=== PATIENT | female | born 1940 | race Caucasian/White ===

== ENCOUNTER → 2017-09-28 | Outpatient (CLI) | payer MEDICARE, OTHER ==
[~2017-09-28] MED LIST: AC325T PO; ASCO500C14 PO; CALC-656 PO; CYAN10007 PO; DICL100G20 TP; DICL100T PO; ETD300C PO; FEXO1TAB43 PO; FEXO60CA19 PO; FLC150T PO; FOLI1TAB24 PO; GBPN100C PO; HYDR15SO8 PO; LEVO200T PO; LIDO15SO2 PO; LVT.15T PO; MECL25TA56 PO; MTP25TSR PO; MULT-608 PO; OMG1KC PO; PNT40TEC PO; POLY17PO23 GT; PRED10TA22 PO; SCP1.5TD TOP; SCR1T1 PO; SUCR1TAB36 PO; TETRACAINESUCKERS MT; VITA-189 PO; ZOLP10TA5 PO; [UNRECOGNIZED DRUG - OTHER] PO
--- NOTE | 2017-09-28 16:51 | Diagnostic Imaging Report ---
Ultrasound of the soft tissue, head and neck. Indication: Pharyngeal dysphagia, history of thyroid carcinoma. The previous ultrasound soft tissue neck exam of 09/02/2015 failed to show any discrete solid or cystic mass. There was no abnormality of the epiglottis nor is any sign of retropharyngeal edema. On this study there is again no evidence for mass or cystic lesion. The thyroid gland was visualized. The thyroid gland is small with the right lobe measuring 2.7 x 0.6 x 0.7, the left lobe is estimated to be 3.5 x 0.6 x 1.0 cm (normal gland size 4-5 by 2 x 2 cm or less). The thyroid gland has somewhat of a heterogeneous texture but there is no focal mass or cyst arising from the gland. The thyroid gland does seem similar in appearance to the prior study. Impression: 1. There is no mass or cyst and there is no sign of an acute abnormality. 2. The thyroid gland is small but similar in appearance to the previous study. 3. If clinical concern regarding an underlying abnormality persists and further imaging is desired, then CT would be recommended. Dictated by: Dictated on workstation # [id number]
== END ==
LOC: RAD 12:07
PROVIDERS: ATTEND Nurse Practitioner Family
DX: R13.13 Dysphagia, pharyngeal phase (principal); E03.8 Other specified hypothyroidism; Z85.850 Personal history of malignant neoplasm of thyroid
CPT/HCPCS: 76536

== ENCOUNTER → 2017-10-11 | Outpatient (CLI) | payer MEDICARE, OTHER ==
[~2017-10-11] MED LIST changes: +IOHEXOL 350 MG/ML 100 ML (OMNIPAQUE 350) VIAL IV ONE; +NS 250 ML (IVPB) BAG IV ONE
[2017-10-11 07:45] LABS: BUN/CREATININE RATIO 15; CREATININE SERUM 0.73 MG/DL (0.60-1.30); GFR ESTIMATED > 60
--- NOTE | 2017-10-11 09:38 | Diagnostic Imaging Report ---
PROCEDURE: CT neck soft tissue with contrast. TECHNIQUE: Multiple contiguous axial images were obtained through the neck after the administration of contrast. INDICATION: Difficulty swallowing. The visualized intracranial structures are unremarkable. The posterior nasopharynx, oropharynx and larynx appear unremarkable. Parapharyngeal fat planes are preserved. Submandibular and parotid glands appear to be symmetric bilaterally. There is some moderate artifact present from dental hardware. Thyroid gland appears to be very small. No definite cervical lymphadenopathy is detected. No fluid collections are seen. IMPRESSION: Unremarkable CT of the neck. Dictated by: Dictated on workstation # [id number]
== END ==
LOC: RAD 07:12
PROVIDERS: ATTEND Nurse Practitioner Family
DX: R22.1 Localized swelling, mass and lump, neck (principal)
CPT/HCPCS: 36415; 70491; 82565; 84520

== ENCOUNTER 2018-03-10 13:57 | Emergency (ER) | payer MEDICARE, OTHER ==
[~2018-03-10] VITALS: Ht 162.6 cm; Wt 86.2 kg
[~2018-03-10 13:57] MED LIST changes: -IOHEXOL 350 MG/ML 100 ML (OMNIPAQUE 350) VIAL IV ONE; -NS 250 ML (IVPB) BAG IV ONE
--- OUTSIDE RECORDS SUMMARY | 2018-03-10 14:01 | XMS REPORT | Clinical Summary ---
Author Author [facility] Organization [facility] Address Unknown Phone Unavailable Care Team Providers Care Hand Tool Lapper Name Role Phone Gardy Crabtree MD Unavailable Unavailable Joseph Mazariegos MD Unavailable Carlos English PCP Brock Najera MD Unavailable Source Comments Some departments are not documenting in the electronic medical record. If you do not see the information that you expected, contact Release of Information in the Health Information Management department at [phone] for further assistance in locating additional records.[facility] Allergies Active Allergy Reactions Severity Noted Date Comments Sulfa (Sulfonamide SEE COMMENTS 06/23/2011 Pt was told it happened Antibiotics) when she was a child Current Medications Prescription Sig. Disp. Refills Start End Date Status Date cyanocobalamin (VITAMIN Take 1,000 mcg by mouth Active B-12) 1,000 mcg tablet daily. fish oil /omega-3 fatty Take 2 Caps by mouth Active acids (SEA-OMEGA) three times daily. 340/1000 mg capsule MULTIVITAMIN PO Take 1 Tab by mouth Active daily. Complete Multivitamin-Women's 50+ levothyroxine (SYNTHROID) Take 200 mcg by mouth Active 200 mcg tablet daily. metoprolol XL (TOPROL XL) Take 25 mg by mouth Active 25 mg tablet daily. CALCIUM CITRATE (CITRACAL Take 2 Caps by mouth Active PO) daily. ciprofloxacin (CIPRO) 250 Take 1 Tab by mouth twice 6 Tab 0 08/16/19 Active mg tablet daily. 14 solifenacin(+) (VESICARE) Take 5 mg by mouth daily. Active 5 mg tablet azaTHIOprine (IMURAN) 50 Take 2 Tabs by mouth 60 Tab 2 09/18/20 Active mg tablet daily. 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 Raynaud's disease /phenomenon 06/23/2011 Stomatitis 06/23/2011 Sicca (HCC) 06/23/2011 Resolved Problems Problem Noted Date Resolved Date Positive ZEESHAN (antinuclear antibody) 01/17/2013 11/14/2013 Undifferentiated connective tissue disease (HCC) 06/23/2011 11/14/2013 Family History Medical History Relation Name Comments Cancer Father Arthritis Mother Heart Disease Mother Stroke Mother Relation Name Status Comments Daughter Alive Father Mother Son Alive Son Alive Social History Tobacco Use Types Packs/Day Years Used Date Former Smoker Cigarettes 1 30 Quit: 04/30/2010 Smokeless Tobacco: Never Used Alcohol Use Drinks/Week oz/Week Comments Yes 0 Standard 0.0 occassionally drinks or equivalent Sex Assigned at Date Recorded Not on file Last Filed Vital Signs Vital Sign Reading Time Taken Blood Pressure 133/90 01/09/2015 1:33 PM CDT Pulse 91 01/09/2015 1:33 PM CDT Temperature 36.3 C (97.4 F) 01/09/2015 1:33 PM CDT Respiratory Rate 16 01/09/2015 1:33 PM CDT Oxygen Saturation 95% 01/09/2015 1:33 PM CDT Inhaled Oxygen - - Concentration Weight 91.4 kg (201 lb 9.6 oz) 01/09/2015 1:33 PM CDT Height 163.8 cm (5' 4.49") 01/09/2015 1:33 PM CDT Body Mass Index 34.08 01/09/2015 1:33 PM CDT Plan of Treatment Health Maintenance Due Date Last Done Comments PHYSICAL (COMPREHENSIVE) 1947 EXAM DTAP/TDAP VACCINES (1 - 01/23/1960 Tdap) SHINGLES RECOMBINANT 01/23/1992 VACCINE (1 of 2) PNEUMONIA (PCV13/PPSV23) 2007 VACCINES (1 of 2 - PCV13) INFLUENZA VACCINE 11/22/2017 OSTEOPOROSIS Completed 11/19/2013 SCREENING/MONITORING Results Not on filefrom Last 3 Months
--- OUTSIDE RECORDS SUMMARY | 2018-03-10 14:01 | XMS REPORT ---
Author Author HAL SOLIS [facility] Address [address] [place] [address] Care Team Providers Care Inpatient Care Manager Rn Name Role Phone HAL SOLIS Unavailable PROBLEMS Type Condition ICD9-CM Code TCI89-LC Code Onset Dates Condition Status SNOMED Code Problem Need for prophylactic vaccination and inoculation, Influenza V04.81 Active [id number] ALLERGIES No Information ENCOUNTERS Encounter Location Date Diagnosis [facility] [id number] [place] [phone] Jan, Encounter for immunization Z23 [facility] [id number] [place] [phone] Jan, Encounter for immunization Z23 [facility] [id number] [place] [phone] Feb, [facility] [id number] [place] [phone] Feb, [facility] [id number] [place] [phone] Jan, [facility] [id number] [place] [phone] Jan, IMMUNIZATIONS Vaccine Route Administration Date Status FLUARIX QUAD (3 AND UP) 2017 IM Intramuscular Jan 31, 2017 Administered SOCIAL HISTORY Never Assessed REASON FOR VISIT Flu shot PLAN OF CARE VITAL SIGNS MEDICATIONS Unknown Medications RESULTS No Results PROCEDURES Procedure Date Ordered Result Body Site FLUARIX QUAD (3 & UP)-GSK-2015 Jan 31, 2017 SINGLE IMMUNIZATION ADMIN Jan 31, 2017 INSTRUCTIONS MEDICATIONS ADMINISTERED No Known Medications
--- OUTSIDE RECORDS SUMMARY | 2018-03-10 14:01 | XMS REPORT ---
Author Author HAL SOLIS [facility] Address [address] [place] [address] Care Team Providers Care Hospice Music Therapist Name Role Phone HAL SOLIS Unavailable PROBLEMS Type Condition ICD9-CM Code EMA40-XT Code Onset Dates Condition Status SNOMED Code Problem Need for prophylactic vaccination and inoculation, Influenza V04.81 Active [id number] ALLERGIES No Information ENCOUNTERS Encounter Location Date Diagnosis [facility] [id number] [place] [phone] Jan, Encounter for immunization 23 [facility] [address] [phone] Jan, Encounter for immunization 23 [facility] [id number] [place] [phone] Jan, Encounter for immunization [address] [phone] Feb, [facility] [id number] [place] [phone] Feb, [facility] [id number] [place] [phone] Jan, [facility] [id number] [place] [phone] Jan, IMMUNIZATIONS Vaccine Route Administration Date Status FLULAVAL QUAD 0.5ML (6 MO & UP) 2017 IM Intramuscular Jan 29, 2018 Administered SOCIAL HISTORY Never Assessed REASON FOR VISIT Flu Shot- Wolfgang Bautista RN PLAN OF CARE VITAL SIGNS MEDICATIONS Unknown Medications RESULTS No Results PROCEDURES Procedure Date Ordered Result Body Site FLULAVAL QUAD 0.5ML (6 MO & UP) 2018 Jan 29, 2018 ADMN FLU VAC NO FEE SCHED SAME DAY Jan 29, 2018 SINGLE IMMUNIZATION ADMIN Jan 29, 2018 INSTRUCTIONS MEDICATIONS ADMINISTERED No Known Medications
--- OUTSIDE RECORDS SUMMARY | 2018-03-10 14:01 | XMS REPORT ---
Author HAL Soto Organization [employer] Address Unknown Phone Unavailable Care Team Providers Care Protocol Manager Name Role Phone HAL SOLIS CP Unavailable Allergies No Known Allergies Problems Problem Type Condition Code Onset Dates Condition Status Assessment Encounter for immunization Z23 Active Problem Need for prophylactic vaccination and inoculation, Influenza V04.81 Active Medications No Known Medications Procedures Procedure Coding System Code Date SINGLE IMMUNIZATION ADMIN CPT-4 80206 Feb 20, 2016 PPV23 (PNEUMOVAX) CPT-4 85240 Feb 20, 2016 Results No Known Results Immunizations Vaccine Administration Date PPV23 (PNEUMOVAX) Feb 20, 2016 FLUARIX QUAD P-FREE 3 AND UP .50 2015Feb 20, 2016 Summary Purpose [employer] Submission
--- OUTSIDE RECORDS SUMMARY | 2018-03-10 14:03 | XMS REPORT | Continuity of Care Document ---
Author Author [facility] Address Unknown Phone Unavailable Allergies Active Description Code Type Severity Reaction Onset Reported/Identified Relationship to Patient Clinical Status Yes Sulfa (Sulfonamide Antibiotics) [id number] Drug Allergy Unknown N/A 2015 Medications There is no data. 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 11/09/2011 Ot 455.8 HEMRRHOID NOS W COMP NEC 11/09/2011 Ot 564.00 UNSPEC CONSTIPATION 11/09/2011 Ot 716.90 ARTHROPATHY NOS-UNSPEC 11/09/2011 Ot 780.4 DIZZINESS AND GIDDINESS 11/09/2011 Ot 780.79 OTH MALAISE FATIGUE 11/09/2011 Ot 782.0 SKIN SENSATION DISTURB 11/09/2011 Ot 784.0 HEADACHE 11/09/2011 Ot 784.92 JAW PAIN 11/09/2011 Ot 787.02 NAUSEA ALONE 11/09/2011 Ot 965.1 POISONING- SALICYLATES 11/09/2011 Ot E850.3 ACC POISON- SALICYLATES 11/09/2011 Ot V13.02 PERSONAL HISTORY, URINARY (TRACT) INFECT 11/09/2011 Ot V15.82 HISTORY OF TOBACCO USE 11/18/2011 Ot 112.0 THRUSH 11/18/2011 Ot 244.9 HYPOTHYROIDISM NOS 11/18/2011 Ot 272.0 PURE HYPERCHOLESTEROLEM 11/18/2011 Ot 279.49 AUTOIMMUNE DISEASE, NOT ELSEWHERE CLASSI 11/18/2011 Ot 350.1 TRIGEMINAL NEURALGIA 11/18/2011 Ot 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 11/18/2011 Ot 455.6 HEMORRHOIDS NOS 11/18/2011 Ot 692.9 DERMATITIS NOS 11/18/2011 Ot 716.90 ARTHROPATHY NOS-UNSPEC 11/18/2011 Ot V15.82 HISTORY OF TOBACCO USE 11/18/2011 Ot V57.1 PHYSICAL THERAPY NEC 11/18/2011 Ot V57.21 ENCOUNTER FOR OCCUPATIONAL THERAPY 10/01/2012 MANINDER BARRON, LIO Duffy Ot 386.11 BENIGN PARXYSMAL VERTIGO 10/01/2012 LIO DICKENS MD Ot 780.4 DIZZINESS AND GIDDINESS 02/12/2013 SOLIS DO, HAL K V04.81 FLU SHOT 10/04/2014 APRYL BARRON, JIM Diego Ot 244.9 HYPOTHYROIDISM NOS 10/04/2014 APRYL BARRON, JIM Diego Ot 528.2 ORAL APHTHAE 10/04/2014 APRYL BARRON, JIM Diego Ot 710.0 SYST LUPUS ERYTHEMATOSIS 10/04/2014 APRYL BARRON, JIM Diego Ot V58.69 OTH MED,LT,CURRENT USE 10/07/2014 SUSU BARRON, ROSINA R Ot 722.10 10/07/2014 SUSU BARRON, ROSINA R Ot 722.52 10/27/2014 SUSU BARRON, ROSINA R Ot 722.10 10/27/2014 SUSU ABRRON, ROSINA R Ot 722.52 11/13/2014 Ot 496 11/13/2014 Ot 716.90 11/13/2014 Ot 782.1 11/13/2014 Ot 791.9 11/13/2014 Ot V72.84 11/13/2014 Ot 782.3 11/13/2014 Ot 959.7 11/13/2014 Ot E000.8 11/13/2014 Ot E849.0 11/13/2014 Ot E928.9 11/13/2014 SUSU BARRON, ROSINA R Ot 244.9 11/13/2014 SUSU BARRON, ROSINA R Ot 794.5 11/13/2014 SUSU BARRON, ROSINA R Ot V16.8 11/13/2014 HAKEEM BARRON, KAISER Renee Ot 447.6 11/13/2014 HAKEEM BARRON, KAISER Renee Ot 447.8 11/13/2014 HAKEEM BARRON, KAISER Renee Ot 786.09 11/13/2014 SUSU BARRON, ROSINA R Ot 722.10 11/13/2014 SUSU BARRON, ROSINA R Ot 722.52 11/14/2014 SUSU BARRON, ROSINA R Ot 722.10 11/14/2014 SUSU BARRON, ROSINA R Ot 722.52 12/05/2014 HAKEEM BARRON, KAISER Renee Ot 785.2 01/01/2015 KAISER PALACIO MD Ot 785.2 08/31/2015 IMER VANG MD Ot J39.2 OTHER DISEASES OF PHARYNX 08/31/2015 IMER VANG MD Ot Z01.810 ENCOUNTER FOR PREPROCEDURAL CARDIOVASCUL 08/31/2015 IMER VANG MD Ot Z01.811 ENCOUNTER FOR PREPROCEDURAL RESPIRATORY 08/31/2015 IMER VANG MD Ot Z01.812 ENCOUNTER FOR PREPROCEDURAL LABORATORY E 08/31/2015 IMER VANG MD Ot Z11.2 ENCOUNTER FOR SCREENING FOR OTHER BACTER 09/04/2015 IMER VANG MD Ot B37.0 CANDIDAL STOMATITIS 09/04/2015 IMER VANG MD Ot E03.9 HYPOTHYROIDISM, UNSPECIFIED 09/04/2015 IMER VANG MD Ot I10 ESSENTIAL (PRIMARY) HYPERTENSION 09/04/2015 IMER VANG MD Ot J35.8 OTHER CHRONIC DISEASES OF TONSILS AND AD 09/04/2015 IMER VANG MD Ot M35.9 SYSTEMIC INVOLVEMENT OF CONNECTIVE TISSU 09/12/2015 ROSINA CRISTOBAL MD Ot D89.9 DISORDER INVOLVING THE IMMUNE MECHANISM, 09/12/2015 ROSINA CRISTOBAL MD Ot E03.9 HYPOTHYROIDISM, UNSPECIFIED 09/12/2015 ROSINA CRISTOBAL MD Ot E78.0 PURE HYPERCHOLESTEROLEMIA 09/12/2015 ROSINA CRISTOBAL MD Ot E86.9 VOLUME DEPLETION, UNSPECIFIED 09/12/2015 ROSINA CRISTOBAL MD R Ot I10 ESSENTIAL (PRIMARY) HYPERTENSION 09/12/2015 ROSINA CRISTOBAL MD R Ot J39.2 OTHER DISEASES OF PHARYNX 09/12/2015 SUSU BARRON, ROSINA Castelan Ot K12.1 OTHER FORMS OF STOMATITIS 09/12/2015 SUSU BARRON, ROSINA R Ot M32.9 SYSTEMIC LUPUS ERYTHEMATOSUS, UNSPECIFIE 03/29/2016 Ot 496 CHR AIRWAY OBSTRUCT NEC 03/29/2016 Ot 716.90 ARTHROPATHY NOS-UNSPEC 03/29/2016 Ot 782.1 NONSPECIF SKIN ERUPT NEC 03/29/2016 Ot 791.9 ABN URINE FINDINGS NEC 03/29/2016 Ot V72.84 EXAM PRE- OPERATIVE NOS 03/29/2016 Ot 782.3 EDEMA 03/29/2016 Ot 959.7 LOWER LEG INJURY NOS 03/29/2016 Ot E000.8 OTHER EXTERNAL CAUSE STATUS 03/29/2016 Ot E849.0 ACCIDENT IN HOME 03/29/2016 Ot E928.9 ACCIDENT NOS 03/29/2016 KAISER PALACIO MD Ot 447.6 ARTERITIS NOS 03/29/2016 KAISER PALACIO MD Ot 447.8 ARTERIAL DISEASE NEC 03/29/2016 KAISER PALACIO MD Ot 786.09 RESPIRATORY ABNORM NEC 03/29/2016 SUSU BARRON, ROSINA R Ot 722.10 LUMBAR DISC DISPLACEMENT 03/29/2016 SUSU BARRON, ROSINA R Ot 722.52 LUMB/LUMBOSAC DISC DEGEN 03/29/2016 KAISER PALACIO MD Ot 785.2 CARDIAC MURMURS NEC 04/05/2016 Ot 496 CHR AIRWAY OBSTRUCT NEC 04/05/2016 Ot 716.90 ARTHROPATHY NOS-UNSPEC 04/05/2016 Ot 782.1 NONSPECIF SKIN ERUPT NEC 04/05/2016 Ot 791.9 ABN URINE FINDINGS NEC 04/05/2016 Ot V72.84 EXAM PRE- OPERATIVE NOS 04/05/2016 Ot 782.3 EDEMA 04/05/2016 Ot 959.7 LOWER LEG INJURY NOS 04/05/2016 Ot E000.8 OTHER EXTERNAL CAUSE STATUS 04/05/2016 Ot E849.0 ACCIDENT IN HOME 04/05/2016 Ot E928.9 ACCIDENT NOS 04/05/2016 KAISER PALACIO MD Ot 447.6 ARTERITIS NOS 04/05/2016 KAISER PALACIO MD Ot 447.8 ARTERIAL DISEASE NEC 04/05/2016 KAISER PALACIO MD Ot 786.09 RESPIRATORY ABNORM NEC 04/05/2016 SUSU BARRON, ROSINA R Ot 722.10 LUMBAR DISC DISPLACEMENT 04/05/2016 SUSU BARRON, ROSINA R Ot 722.52 LUMB/LUMBOSAC DISC DEGEN 04/05/2016 KAISER PALACIO MD Ot 785.2 CARDIAC MURMURS NEC 11/26/2016 Ot V72.84 EXAM PRE- OPERATIVE NOS 11/26/2016 Ot 782.3 EDEMA 11/26/2016 Ot 959.7 LOWER LEG INJURY NOS 11/26/2016 Ot E000.8 OTHER EXTERNAL CAUSE STATUS 11/26/2016 Ot E849.0 ACCIDENT IN HOME 11/26/2016 Ot E928.9 ACCIDENT NOS 11/26/2016 KAISER PALACIO MD Ot 447.6 ARTERITIS NOS 11/26/2016 KAISER PALACIO MD Ot 447.8 ARTERIAL DISEASE NEC 11/26/2016 KAISER PALACIO MD Ot 786.09 RESPIRATORY ABNORM NEC 11/26/2016 ROSINA CRISTOBAL MD R Ot 722.10 LUMBAR DISC DISPLACEMENT 11/26/2016 ROSINA CRISTOBAL MD R Ot 722.52 LUMB/LUMBOSAC DISC DEGEN 11/26/2016 KAISER PALACIO MD Ot 785.2 CARDIAC MURMURS NEC 04/10/2017 Ot 782.3 EDEMA 04/10/2017 Ot 959.7 LOWER LEG INJURY NOS 04/10/2017 Ot E000.8 OTHER EXTERNAL CAUSE STATUS 04/10/2017 Ot E849.0 ACCIDENT IN HOME 04/10/2017 Ot E928.9 ACCIDENT NOS 04/10/2017 KAISER PALACIO MD Ot 447.6 ARTERITIS NOS 04/10/2017 KAISER PALACIO MD Ot 447.8 ARTERIAL DISEASE NEC 04/10/2017 KAISER PALACIO MD Ot 786.09 RESPIRATORY ABNORM NEC 04/10/2017 SUSU BARRON, ROSINA R Ot 722.10 LUMBAR DISC DISPLACEMENT 04/10/2017 ROSINA CRISTOBAL MD R Ot 722.52 LUMB/LUMBOSAC DISC DEGEN 04/10/2017 KAISER PALACIO MD Ot 785.2 CARDIAC MURMURS NEC 04/11/2017 Ot 782.3 EDEMA 04/11/2017 Ot 959.7 LOWER LEG INJURY NOS 04/11/2017 Ot E000.8 OTHER EXTERNAL CAUSE STATUS 04/11/2017 Ot E849.0 ACCIDENT IN HOME 04/11/2017 Ot E928.9 ACCIDENT NOS 04/11/2017 HAKEEM BARRON, KAISER Renee Ot 447.6 ARTERITIS NOS 04/11/2017 KAISER PALACIO MD Ot 447.8 ARTERIAL DISEASE NEC 04/11/2017 KAISER PALACIO MD Ot 786.09 RESPIRATORY ABNORM NEC 04/11/2017 SUSU BARRON, ROSINA R Ot 722.10 LUMBAR DISC DISPLACEMENT 04/11/2017 SUSU BARRON, ROSINA R Ot 722.52 LUMB/LUMBOSAC DISC DEGEN 04/11/2017 KAISER PALACIO MD Ot 785.2 CARDIAC MURMURS NEC 04/12/2017 Ot 782.3 EDEMA 04/12/2017 Ot 959.7 LOWER LEG INJURY NOS 04/12/2017 Ot E000.8 OTHER EXTERNAL CAUSE STATUS 04/12/2017 Ot E849.0 ACCIDENT IN HOME 04/12/2017 Ot E928.9 ACCIDENT NOS 04/12/2017 KAISER PALACIO MD Ot 447.6 ARTERITIS NOS 04/12/2017 KAISER PALACIO MD Ot 447.8 ARTERIAL DISEASE NEC 04/12/2017 KAISER PALACIO MD Ot 786.09 RESPIRATORY ABNORM NEC 04/12/2017 ROSINA CRISTOBAL MD R Ot 722.10 LUMBAR DISC DISPLACEMENT 04/12/2017 ROSINA CRISTOBAL MD R Ot 722.52 LUMB/LUMBOSAC DISC DEGEN 04/12/2017 KAISER PALACIO MD Ot 785.2 CARDIAC MURMURS NEC 09/27/2017 SUSU BARRON, ROSINA R Ot 244.9 HYPOTHYROIDISM NOS 09/27/2017 SUSU BARRON, ROSINA R Ot 794.5 ABN THYROID FUNCT STUDY 09/27/2017 SUSU BARRON, ROSINA R Ot V16.8 FAMILY HX-MALIGNANCY NEC 09/27/2017 KAISER PALACIO MD Ot 447.6 ARTERITIS NOS 09/27/2017 KAISER PALACIO MD Ot 447.8 ARTERIAL DISEASE NEC 09/27/2017 KAISER PALACIO MD Ot 786.09 RESPIRATORY ABNORM NEC 09/27/2017 ROSINA CRISTOBAL MD R Ot 722.10 LUMBAR DISC DISPLACEMENT 09/27/2017 ROSINA CRISTOBAL MD R Ot 722.52 LUMB/LUMBOSAC DISC DEGEN 09/27/2017 PALACIO MD, KAISER M Ot 785.2 CARDIAC MURMURS NEC 09/29/2017 COURTNEY, JAGJIT R WHITE SHOE RAGGER Ot E03.8 OTHER SPECIFIED HYPOTHYROIDISM 09/29/2017 COURTNEY, JAGJIT R WHITE SHOE RAGGER Ot R13.13 DYSPHAGIA, PHARYNGEAL PHASE 09/29/2017 COURTNEY, JAGJIT R WHITE SHOE RAGGER Ot Z85.850 PERSONAL HISTORY OF MALIGNANT NEOPLASM O 09/29/2017 COURTNEY, JAGJIT R WHITE SHOE RAGGER Ot E03.8 OTHER SPECIFIED HYPOTHYROIDISM 09/29/2017 COURTNEY, JAGJIT R WHITE SHOE RAGGER Ot R13.13 DYSPHAGIA, PHARYNGEAL PHASE 09/29/2017 COURTNEY, JAGJIT R WHITE SHOE RAGGER Ot Z85.850 PERSONAL HISTORY OF MALIGNANT NEOPLASM O 10/12/2017 COURTNEY, JAGJIT R WHITE SHOE RAGGER Ot R22.1 LOCALIZED SWELLING, MASS AND LUMP, NECK 10/12/2017 COURTNEY, JAGJIT R WHITE SHOE RAGGER Ot R22.1 LOCALIZED SWELLING, MASS AND LUMP, NECK 10/18/2017 COURTNEY JAGJIT R WHITE SHOE RAGGER Ot E03.8 OTHER SPECIFIED HYPOTHYROIDISM 10/18/2017 COURTNEY, JAGJIT R WHITE SHOE RAGGER Ot R13.13 DYSPHAGIA, PHARYNGEAL PHASE 10/18/2017 COURTNEY JAGJIT R WHITE SHOE RAGGER Ot Z85.850 PERSONAL HISTORY OF MALIGNANT NEOPLASM O 10/31/2017 COURTNEY, JAGJIT R WHITE SHOE RAGGER Ot R22.1 LOCALIZED SWELLING, MASS AND LUMP, NECK 11/13/2017 COURTNEY JAGJIT R WHITE SHOE RAGGER Ot E03.8 OTHER SPECIFIED HYPOTHYROIDISM 11/13/2017 COURTNEY, JAGJIT R WHITE SHOE RAGGER Ot R13.13 DYSPHAGIA, PHARYNGEAL PHASE 11/13/2017 COURTNEY, JAGJIT R WHITE SHOE RAGGER Ot Z85.850 PERSONAL HISTORY OF MALIGNANT NEOPLASM O 11/20/2017 COURTNEY, JAGJIT R WHITE SHOE RAGGER Ot R22.1 LOCALIZED SWELLING, MASS AND LUMP, NECK Procedures Code Description Performed By Performed On 38.21 BLOOD VESSEL BIOPSY 11/07/2011 86.11 CLOSED BIOPSY OF SKIN AND SUBCUTANEOUS T 11/11/2011 G0008 FLU ADMINISTRATION ( MEDICARE ONLY) 02/12/2013 Results Test Result Range [id number] - 10/11/17 07:18 Serum or plasma urea nitrogen measurement (mass/volume) 11 mg/dL 7-18 Serum or plasma creatinine measurement (mass/volume) 0.73 mg/dL 0.60-1.30 Serum or plasma urea nitrogen/creatinine mass ratio 15 NRG Serum or plasma creatinine measurement with calculation of estimated glomerular filtration rate > NRG Encounters ACCT No. Visit Date/Time Discharge Status Pt. Type Provider Facility Loc./Unit Complaint [id number] 02/12/2013 14:24:00 02/12/2013 23:59:59 CLS Outpatient HAL SOLIS DO [id number] 10/11/2017 07:12:00 10/11/2017 23:59:59 CLS Outpatient JAGJIT VALDEZ WHITE SHOE RAGGER [facility] RAD OROPHARYNGEAL DYSPHAGIA [id number] 09/28/2017 12:07:00 09/28/2017 23:59:59 CLS Outpatient JAGJIT VALDEZ WHITE SHOE RAGGER [facility] RAD PHARYNGEAL DYSPHAGIA [id number] 09/06/2015 16:40:00 09/12/2015 10:25:00 DIS Inpatient ROSINA CRISTOBAL MD [facility] 4TH SEVERE ORAL ULCERS [id number] 09/02/2015 21:04:00 09/04/2015 09:45:00 DIS Outpatient IMER VANG MD Via [facility] INTRACTABLE THROAT PAIN, DYSPHAGIA,PHARYNGEAL LESIO [id number] 09/03/2015 07:30:00 09/03/2015 23:59:59 CLS Preadmit IMER VANG MD [facility] PHARENGEAL LESION [id number] 08/31/2015 13:29:00 08/31/2015 15:00:00 DIS Outpatient IMER VANG MD [facility] PREOP PHARENGEAL LESION [id number] 11/13/2014 08:03:00 11/13/2014 23:59:59 CLS Outpatient KAISER PALACIO MD [facility] CARD MURMUR [id number] 10/04/2014 19:49:00 10/04/2014 20:44:00 DIS Emergency APRYL BARRON, JIM Diego [facility] ER MOUTH INFECTION [id number] 10/03/2014 08:06:00 10/03/2014 23:59:59 CLS Outpatient ROSINA CRISTOBAL MD [facility] RAD L4-L5 NEUROPATHY [id number] 05/15/2013 11:05:00 05/15/2013 23:59:59 CLS Outpatient KAISER PALACIO MD [facility] RAD ANC ASSOCIATED VASCULITIS [id number] 12/04/2012 16:08:00 12/04/2012 23:59:59 CLS Outpatient [id number] 11/13/2012 12:41:00 11/13/2012 23:59:59 CLS Outpatient SUSU BARRON, ROSINA Castelan [facility] RAD THYROID CA, ELEVATED TSH , HYPOTHYROID [id number] 10/01/2012 04:44:00 10/01/2012 06:25:00 DIS Emergency LIO DICKENS MD [facility] ER WEAKNESS, N/V [id number] 02/29/2012 11:11:00 Document Registration [id number] 11/09/2011 09:55:00 Document Registration [id number] 11/02/2011 08:15:00 Document Registration [id number] 10/17/2011 07:32:00 Document Registration [id number] 10/14/2011 08:02:00 Document Registration [id number] 11/24/2010 14:13:00 Document Registration [id number] 01/31/2017 11:20:00 01/31/2017 23:59:59 CLS Outpatient ROSALIA ANNE [facility]
[2018-03-10] MEDS ORDERED: NS IV 1000 ML 1,000 ML IV ONE (14:09)
[2018-03-10] MEDS ORDERED: DEXAMETHASONE 10 MG/ML (DECADRON) 1 ML VIAL IV ONE (14:15)
[2018-03-10] MEDS ORDERED: fentaNYL INJECTION 100 MCG/2 ML AMP ONE (14:26)
[2018-03-10 14:27] LABS: BASOPHILS % (AUTO) 0 % (0-10); EOSINOPHILS # (AUTO) 0.2 10^3/uL (0.0-0.3); EOSINOPHILS % (AUTO) 2 % (0-10); HEMATOCRIT 48 % (35-52); HEMOGLOBIN 15.7 G/DL (11.5-16.0); LYMPHOCYTES # (AUTO) 1.7 X 10^3 (1.0-4.0); LYMPHOCYTES % (AUTO) 18 % (12-44); MEAN CORPUSCULAR HEMOGLOBIN 29 PG (25-34); MEAN CORPUSCULAR HGB CONC 33 G/DL (32-36); MEAN CORPUSCULAR VOLUME 90 FL (80-99); MEAN PLATELET VOLUME 9.8 FL (7.4-10.4); MONOCYTES # (AUTO) 0.7 X 10^3 (0.0-1.0); MONOCYTES % (AUTO) 8 % (0-12); NEUTROPHILS # (AUTO) 6.7 X 10^3 (1.8-7.8); NEUTROPHILS % (AUTO) 71 % (42-75); PLATELET COUNT 315 10^3/uL (130-400); RED BLOOD COUNT 5.34 10^6/uL (4.35-5.85); RED CELL DISTRIBUTION WIDTH 13.6 % (10.0-14.5); WHITE BLOOD COUNT 9.4 10^3/uL (4.3-11.0)
[2018-03-10] MEDS ORDERED: fentaNYL INJECTION 100 MCG/2 ML AMP IVP ONE (14:30)
[2018-03-10 14:47] LABS: ALANINE AMINOTRANSFERASE 41 U/L (0-55); ALBUMIN 3.9 GM/DL (3.2-4.5); ALKALINE PHOSPHATASE 155 U/L (40-136); BILIRUBIN,TOTAL 0.4 MG/DL (0.1-1.0); BUN/CREATININE RATIO 15; CALCIUM 9.6 MG/DL (8.5-10.1); CARBON DIOXIDE 25 MMOL/L (21-32); CHLORIDE 103 MMOL/L (98-107); GFR ESTIMATED > 60; GLUCOSE 88 MG/DL (70-105); SODIUM 140 MMOL/L (135-145); TOTAL PROTEIN 6.9 GM/DL (6.4-8.2)
[2018-03-10] MEDS ORDERED: LIDOCAINE 2% VISCOUS 15 ML UDC PO ONE (15:15)
--- NOTE | 2018-03-10 15:15 | ED EENT ---
History of Present Illness General Chief Complaint: Oral/Throat Problems Stated Complaint: THROAT ISSUES Nursing Triage Note: PT CO OF MOUTH SORES, PT HAS NUMEROUS RED ULCERS IN MOUTH, MOUTH ALSO COVERED W WHITE FILM STATES ONLY TAKING A FEW SIPS A DAY. PT STATES WAS SEEN AT [facility] YESTERDAY AND IS TAKING MAGIC MOUTHWASH BUT NOT HELPING. PT HAS LUPUS AND HAS THESE SORES IN MOUTH ALOT Source: patient Exam Limitations: no limitations History of Present Illness Date Seen by Provider: Mar 10, 2018 Time Seen by Provider: 14:00 Initial Comments Patient is a 78-year-old female who presents to the emergency room with complaints of ulcers to her tongue and throat. She reports that she was seen yesterday at Dr. English's office and was treated with nystatin mouthwash and given Tylenol 3 for pain control. She reports that she is unable to take the medication due to pain with swallowing and has not been able to drink. He may liquids today. She reports that she has lupus and gets he sores in her mouth frequently. Today tongue is covered and a white thick film. Timing/Duration: intermittent Location: mouth, throat Prearrival Treatment: prescription meds Associated Symptoms: poor fluid intake, poor solids intake, sore throat Allergies and Home Medications Allergies Coded Allergies: Sulfa (Sulfonamide Antibiotics) (Verified Allergy, Unknown, 08/31/15) Home Medications Calcium Carbonate/Vitamin D3 1 Each Tablet, 1 TAB PO DAILY, (Reported) Hydrocodone/Acetaminophen 15 Ml Solution, 10 ML PO Q4H PRN for PAIN Prescribed by: OH ABDI on 09/04/15 0744 Hydrocodone/Acetaminophen 15 Ml Solution, 2 TSP PO Q4H 8 OZ BOTTLE Prescribed by: GINGER PINO on 03/10/18 1520 Levothyroxine Sodium 200 Mcg Tablet, 200 MCG PO DAILY, (Reported) LAST FILLED 03/11/15 #90 Lidocaine HCl 15 Ml Solution, 5 ML PO Q2H PRN for pain Prescribed by: OH ABDI on 09/04/15 0744 Metoprolol Succinate 25 Mg Tab.sr.24h, 25 MG PO DAILY, (Reported) Multivitamins 1 Tab Tablet, 1 TAB PO DAILY, (Reported) [place]ner 3 Polyunsat Fatty Acids 1,000 Mg Cap, 1,000 MG PO DAILY, (Reported) Prednisone 10 Mg Tab.ds.pk, 10 MG PO TID PRN for RASH Take 6 tabs(60mg)daily,decrease by 1 tab(10MG)daily. Prescribed by: BRIAN ENGLISH on 09/12/15 0755 Sucralfate 1 Gm Tablet, 1 GM PO ACHS, (Reported) Vitamin B Complex 1 Each Tablet, 1 TAB PO DAILY, (Reported) Zolpidem Tartrate 10 Mg Tablet, 10 MG PO HS PRN for SLEEP, (Reported) Patient Home Medication List Home Medication List Reviewed: Yes Review of Systems Review of Systems Constitutional: no symptoms reported, see HPI Mouth: see HPI, other (ulcerations to tongue.) Throat: see HPI, pain, swelling; denies muffled; painful swallowing, difficulty with fluids All Other Systems Reviewed Negative Unless Noted: Yes Past Klfnzze-Vjwkwr-Hqhipk Hx Past Med/Social Hx: Reviewed Nursing Past Med/Soc Hx Patient Social History Alcohol Use: Denies Use Recreational Drug Use: No Smoking Status: Former Smoker Former Smoker, Quit: August 31, 2007 Recent Foreign Travel: No Contact w/Someone Who Travel: No Recent Infectious Disease Expo: No Recent Hopitalizations: No (2003) Immunizations Up To Date Date of Pneumonia Vaccine: Jan 09, 2011 Date of Influenza Vaccine: Jan 09, 2011 Past Medical History Surgeries: Yes (CATARACTS, RIGHT TOTAL HIP, TEMPORAL ARTERY BIOPSY) Eye Surgery, Gallbladder, Hysterectomy, Joint Replacement, Orthopedic, Thyroidectomy, Tonsillectomy Respiratory: No Cardiac: Yes High Cholesterol, Hypertension Neurological: Yes (possible previous stroke) Reproductive Disorders: No (HYSTERECTOMY) HIV/AIDS: No Gastrointestinal: No Musculoskeletal: Yes Arthritis Endocrine: Yes (thyroidectomy) Hypothyroidsim, Lupus Cataract Loss of Vision: Denies Hearing Impairment: Hearing Aide Right, Deaf Cancer: No Psychosocial: No Integumentary: No Blood Disorders: No Adverse Reaction/Blood Tranf: No (N/A) Family Medical History Reviewed Nursing Family Hx Alcoholism 19 MOTHER Diabetes mellitus 19 MOTHER Myocardial infarction 19 MOTHER Cancer Physical Exam Vital Signs Vital Signs - First Documented 03/10/18 14:00 Temp 98.5 Pulse 110 Resp 18 B/P (MAP) 156/112 (127) Pulse Ox 95 Height, Weight, BMI Height: 5'4.00" Weight: 190lbs. 5.0oz. [id number]; 30.3 BMI Method:Stated General Appearance: WD/WN, no apparent distress Eyes: bilateral eye normal inspection, bilateral eye PERRL, bilateral eye EOMI Ears: bilateral ear auricle normal, bilateral ear canal normal, bilateral ear TM normal Nose: normal inspection Mouth/Throat: tonsillar exudate, tonsillar swelling, other (patient's tongue is covered in thrush and there are reddened ulcerations to her tongue, throat, tonsils.) Cardiovascular: normal peripheral pulses, regular rate, rhythm, no edema, no gallop, no JVD, no murmur Respiratory: chest non-tender, lungs clear, normal breath sounds, no respiratory distress, no accessory muscle use Neurologic/Psychiatric: alert, normal mood/affect, oriented x 3 Skin: normal color, warm/dry Progress/Results/Core Measures Results/Orders Lab Results Laboratory Tests Test 03/10/18 14:20 Range/Units White Blood Count 9.4 4.3-11.0 10^3/uL Red Blood Count 5.34 4.35-5.85 10^6/uL Hemoglobin 15.7 11.5-16.0 G/DL Hematocrit 48 35-52 % Mean Corpuscular Volume 90 80-99 FL Mean Corpuscular Hemoglobin 29 25-34 PG Mean Corpuscular Hemoglobin Concent 33 32-36 G/DL Red Cell Distribution Width 13.6 10.0-14.5 % Platelet Count 315 130-400 10^3/uL Mean Platelet Volume 9.8 7.4-10.4 FL Neutrophils (%) (Auto) 71 42-75 % Lymphocytes (%) (Auto) 18 12-44 % Monocytes (%) (Auto) 8 0-12 % Eosinophils (%) (Auto) 2 0-10 % Basophils (%) (Auto) 0 0-10 % Neutrophils # (Auto) 6.7 1.8-7.8 X 10^3 Lymphocytes # (Auto) 1.7 1.0-4.0 X 10^3 Monocytes # (Auto) 0.7 0.0-1.0 X 10^3 Eosinophils # (Auto) 0.2 0.0-0.3 10^3/uL Basophils # (Auto) 0.0 0.0-0.1 10^3/uL Sodium Level 140 135-145 MMOL/L Potassium Level 4.0 3.6-5.0 MMOL/L Chloride Level 103 98-107 MMOL/L Carbon Dioxide Level 25 21-32 MMOL/L Anion Gap 12 5-14 MMOL/L Blood Urea Nitrogen 12 7-18 MG/DL Creatinine 0.80 0.60-1.30 MG/DL Estimat Glomerular Filtration Rate > 60 BUN/Creatinine Ratio 15 Glucose Level 88 70-105 MG/DL Calcium Level 9.6 8.5-10.1 MG/DL Corrected Calcium 9.7 8.5-10.1 MG/DL Total Bilirubin 0.4 0.1-1.0 MG/DL Aspartate Amino Transf (AST/SGOT) 39 H 5-34 U/L Alanine Aminotransferase (ALT/SGPT) 41 0-55 U/L Alkaline Phosphatase 155 H 40-136 U/L Total Protein 6.9 6.4-8.2 GM/DL Albumin 3.9 3.2-4.5 GM/DL My Orders Orders - GINGER PINO Saline Lock/Iv-Start (03/10/18 14:09) Ns Iv 1000 Ml (Sodium Chloride 0.9%) (03/10/18 14:09) Cbc With Automated Diff (03/10/18 14:09) Comprehensive Metabolic Panel (03/10/18 14:09) Dexamethasone Injection (Decadron Inject (03/10/18 14:15) Fentanyl Injection (Sublimaze Injection (03/10/18 14:30) Fentanyl Injection (Sublimaze Injection (03/10/18 14:26) Lidocaine 2% Viscous 15 Ml (Xylocaine Vi (03/10/18 15:15) Medications Given in ED Current Medications Medications Dose Ordered Sig/Jada Route Start Time Stop Time Status Last Admin Dose Admin Dexamethasone Sodium Phosphate 10 mg ONCE ONCE IV 03/10/18 14:15 03/10/18 14:16 DC 03/10/18 14:38 10 MG Fentanyl Citrate 25 mcg ONCE ONCE IVP 03/10/18 14:30 03/10/18 14:31 DC 03/10/18 14:38 25 MCG Lidocaine HCl 5 ml ONCE ONCE PO 03/10/18 15:15 03/10/18 15:16 DC 03/10/18 15:18 5 ML Sodium Chloride 1,000 ml @ 0 mls/hr Q0M ONCE IV 03/10/18 14:09 03/10/18 14:11 DC 03/10/18 14:38 1,000 MLS/HR Vital Signs/I&O 03/10/18 03/10/18 14:00 15:47 Temp 98.5 Pulse 110 88 Resp 18 18 B/P (MAP) 156/112 (127) 142/88 (106) Pulse Ox 95 95 Blood Pressure Mean: 127 Progress Progress Note : Time: 15:15 Progress Note The patient is pain-free at this time. her lab results were reviewed with her with plans for discharge. I will be sending the patient home with some liquid pain medication and viscous lidocaine for pain control. She was instructed to continue her nystatin mouthwash. She agrees a plate of care, plans for follow-up , return precautions were given. Departure Impression Primary Impression: Oral aphthous ulcer Additional Impression: Stomatitis Disposition: HOME, SELF-CARE Condition: Stable/Unchanged Departure-Patient Inst. Decision time for Depature: 15:15 Referrals: ROSINA ENGLISH MD (PCP/Family) Primary Care Physician Patient Instructions: Yeast Infection (DC) Add. Discharge Instructions: Continue to use the oral nystatin mouth wash. Use the viscous lidocaine that was provided to you as needed for pain relief. Take the oral liquid pain medication as directed. Drink plenty of water to stay hydrated. Follow-up with Dr. English's office within 1 week for recheck. Return back to the emergency room for any worsening symptoms or concerns as needed. All discharge instructions reviewed with patient and/or family. Voiced understanding. Scripts Hydrocodone/Acetaminophen (Hydrocodon-Acetamin 7.5-325/15 ML) 15 Ml Solution 2 TSP PO Q4H for Pain, #1 B 8 OZ BOTTLE Prov: GINGER PINO 03/10/18 GINGER PINO Mar 10, 2018 15:15
[2018-03-10] MEDS ORDERED: HYDR15SO8 PO (15:20)
[2018-03-10 15:47] VITALS: BP 142/88
== END 2018-03-10 15:42 | disposition home or self-care (01) ==
LOC: ER 13:57 → EDUNIT# 13:57 → ER 15:42
DX: K12.0 Recurrent oral aphthae (principal); M32.9 Systemic lupus erythematosus, unspecified; E78.00 Pure hypercholesterolemia, unspecified; I10 Essential (primary) hypertension; E03.9 Hypothyroidism, unspecified; Z82.49 Family history of ischemic heart disease and other diseases of the circulatory system; Z96.641 Presence of right artificial hip joint; Z90.89 Acquired absence of other organs; Z90.710 Acquired absence of both cervix and uterus; Z87.891 Personal history of nicotine dependence; Z79.52 Long term (current) use of systemic steroids; Z88.0 Allergy status to penicillin
CPT/HCPCS: 36415; 80053; 85025

== ENCOUNTER 2018-06-22 19:55 | Emergency (ER) | payer MEDICARE, OTHER ==
[~2018-06-22] VITALS: Ht 162.6 cm; Wt 81.6 kg
[2018-06-22] MEDS ORDERED: ACETAMINOPHEN 500 MG TAB (TYLENOL) PO ONE (20:15)
--- NOTE | 2018-06-22 20:25 | ED Headache ---
General Chief Complaint: General Problems/Pain Stated Complaint: PAIN UP THE SIDE OF HEAD Source: patient Exam Limitations: no limitations History of Present Illness Date Seen by Provider: Jun 22, 2018 Time Seen by Provider: 20:10 Initial Comments Patient presents to ER by private conveyance with chief complaint this is the second night now she's had some sharp stinging stabbing electrical-like pains in her side of her head radiating up towards the top of her head. It starts just in front of the ear and goes up and a straight line. His reproduced if she taps in front of her ear. She's never had this before. No history of rash, itching or zoster. She does have a history of lupus not on any immunosuppressants. She occasionally gets stomatitis and and ulcerations in her mouth like she has now. She's not had any coronary history, stroke history. She does not have hypertension, hypercholesterolemia nor does she smoke. She does take levothyroxine for hypothyroidism. She's not had any particularly painful teeth or worsening pain on talking her masticating. Appetite is normal. No nausea or vomiting. No diarrhea fevers chills cough or shortness of breath. Never had trigeminal neuralgia before. No blurry vision or double vision. 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 She states she had multiple biopsies workup and even been for methotrexate and spent a year on prednisone. She finally decided that the care was worse than disease and stopped following up taking any medication for it and it has not bothered her since. Allergies and Home Medications Allergies Coded Allergies: Sulfa (Sulfonamide Antibiotics) (Verified Allergy, Unknown, 08/31/15) Home Medications Calcium Carbonate/Vitamin D3 1 Each Tablet, 1 TAB PO DAILY, (Reported) Hydrocodone/Acetaminophen 15 Ml Solution, 10 ML PO Q4H PRN for PAIN Prescribed by: OH ABDI on 09/04/15 0733 Hydrocodone/Acetaminophen 15 Ml Solution, 2 TSP PO Q4H 8 OZ BOTTLE Prescribed by: GINGER PINO on 03/10/18 1520 Levothyroxine Sodium 200 Mcg Tablet, 200 MCG PO DAILY, (Reported) LAST FILLED 03/11/15 #90 Lidocaine HCl 15 Ml Solution, 5 ML PO Q2H PRN for pain Prescribed by: OH ABDI on 09/04/15 0744 Metoprolol Succinate 25 Mg Tab.sr.24h, 25 MG PO DAILY, (Reported) Multivitamins 1 Tab Tablet, 1 TAB PO DAILY, (Reported) Th[place]au 3 Polyunsat Fatty Acids 1,000 Mg Cap, 1,000 MG PO DAILY, (Reported) Prednisone 10 Mg Tab.ds.pk, 10 MG PO TID PRN for RASH Take 6 tabs(60mg)daily,decrease by 1 tab(10MG)daily. Prescribed by: BRIAN ENGLISH on 09/12/15 0755 Sucralfate 1 Gm Tablet, 1 GM PO ACHS, (Reported) Vitamin B Complex 1 Each Tablet, 1 TAB PO DAILY, (Reported) Zolpidem Tartrate 10 Mg Tablet, 10 MG PO HS PRN for SLEEP, (Reported) Patient Home Medication List Home Medication List Reviewed: Yes Review of Systems Review of Systems Constitutional: No chills, No diaphoresis, No fever, No malaise, No weakness Eyes: Denies Pain, Denies Photophobia, Denies Previous Injury, Denies Shadows; Other (cataracts with lens replacement) Ears, Nose, Mouth, Throat: denies ear pain, denies ear discharge Respiratory: No cough, No short of breath Cardiovascular: No chest pain, No edema Gastrointestinal: No abdominal pain, No constipation, No diarrhea Genitourinary: No discharge, No dysuria Past Cbxezff-Rhgufw-Eedxkx Hx Patient Social History Alcohol Use: Denies Use Recreational Drug Use: No Smoking Status: Former Smoker Former Smoker, Quit: August 31, 2007 Recent Foreign Travel: No Contact w/Someone Who Travel: No Recent Hopitalizations: No (2003) Immunizations Up To Date Date of Pneumonia Vaccine: Jan 09, 2011 Date of Influenza Vaccine: Jan 09, 2011 Past Medical History Surgeries: Yes (CATARACTS, RIGHT TOTAL HIP, TEMPORAL ARTERY BIOPSY) Eye Surgery, Gallbladder, Hysterectomy, Joint Replacement, Orthopedic, Thyroidectomy, Tonsillectomy Respiratory: No Cardiac: Yes High Cholesterol, Hypertension Neurological: Yes (possible previous stroke) Reproductive Disorders: No (HYSTERECTOMY) HIV/AIDS: No Gastrointestinal: No Musculoskeletal: Yes Arthritis Endocrine: Yes (thyroidectomy) Hypothyroidsim, Lupus Cataract Loss of Vision: Denies Hearing Impairment: Hearing Aide Right, Deaf Cancer: No Psychosocial: No Integumentary: No Blood Disorders: No Adverse Reaction/Blood Tranf: No (N/A) Family Medical History Alcoholism 19 MOTHER Diabetes mellitus 19 MOTHER Myocardial infarction 19 MOTHER Cancer Physical Exam Vital Signs Vital Signs - First Documented 06/22/18 20:00 Temp 97.8 Pulse 102 Resp 18 B/P (MAP) 150/106 (121) Pulse Ox 98 Capillary Refill : Height, Weight, BMI Height: 5'4.00" Weight: 190lbs. 5.0oz. [id number]; 30.3 BMI Method:Stated General Appearance: WD/WN, no apparent distress HEENT: PERRL/EOMI, normal ENT inspection, TMs normal, pharynx normal, other ( tenderness to percussion on the right tragus and just anterior to the right ear. Oropharynx has 0.5 x 1 cm erythematous raised ulcer in the soft palate just right of the midline) Cardiovascular: normal peripheral pulses, regular rate, rhythm, no edema Respiratory: chest non-tender, lungs clear, normal breath sounds, no respiratory distress, no accessory muscle use Gastrointestinal: normal bowel sounds, non tender, soft Extremities: normal range of motion, non-tender, normal inspection, normal capillary refill Progress/Results/Core Measures Results/Orders Lab Results Laboratory Tests Test 06/22/18 20:20 Range/Units White Blood Count 9.6 4.3-11.0 10^3/uL Red Blood Count 5.17 4.35-5.85 10^6/uL Hemoglobin 15.2 11.5-16.0 G/DL Hematocrit 47 35-52 % Mean Corpuscular Volume 90 80-99 FL Mean Corpuscular Hemoglobin 29 25-34 PG Mean Corpuscular Hemoglobin Concent 33 32-36 G/DL Red Cell Distribution Width 14.3 10.0-14.5 % Platelet Count 385 130-400 10^3/uL Mean Platelet Volume 9.3 7.4-10.4 FL Neutrophils (%) (Auto) 68 42-75 % Lymphocytes (%) (Auto) 19 12-44 % Monocytes (%) (Auto) 8 0-12 % Eosinophils (%) (Auto) 4 0-10 % Basophils (%) (Auto) 0 0-10 % Neutrophils # (Auto) 6.5 1.8-7.8 X 10^3 Lymphocytes # (Auto) 1.8 1.0-4.0 X 10^3 Monocytes # (Auto) 0.8 0.0-1.0 X 10^3 Eosinophils # (Auto) 0.4 H 0.0-0.3 10^3/uL Basophils # (Auto) 0.0 0.0-0.1 10^3/uL Erythrocyte Sedimentation Rate 5 0-30 MM/HR Sodium Level 140 135-145 MMOL/L Potassium Level 4.0 3.6-5.0 MMOL/L Chloride Level 103 98-107 MMOL/L Carbon Dioxide Level 27 21-32 MMOL/L Anion Gap 10 5-14 MMOL/L Blood Urea Nitrogen 22 H 7-18 MG/DL Creatinine 0.77 0.60-1.30 MG/DL Estimat Glomerular Filtration Rate > 60 BUN/Creatinine Ratio 29 Glucose Level 121 H 70-105 MG/DL Calcium Level 9.6 8.5-10.1 MG/DL Corrected Calcium 10.0 8.5-10.1 MG/DL Total Bilirubin 0.2 0.1-1.0 MG/DL Aspartate Amino Transf (AST/SGOT) 24 5-34 U/L Alanine Aminotransferase (ALT/SGPT) 27 0-55 U/L Alkaline Phosphatase 96 40-136 U/L Troponin I < 0.028 <0.028 NG/ML C-Reactive Protein High Sensitivity 0.57 H 0.00-0.50 MG/DL Total Protein 6.1 L 6.4-8.2 GM/DL Albumin 3.5 3.2-4.5 GM/DL My Orders Orders - PATITO SANCHEZ Cbc With Automated Diff (06/22/18 20:15) Comprehensive Metabolic Panel (06/22/18 20:15) Hs C Reactive Protein (06/22/18 20:15) Erythrocyte Sedimentation Rate (06/22/18 20:15) Acetaminophen Tablet (Tylenol Tablet) (06/22/18 20:15) Ekg Tracing (06/22/18 20:15) Continuous Ekg Monitoring (06/22/18 20:15) Troponin I (06/22/18 20:15) Medications Given in ED Current Medications Medications Dose Ordered Sig/Jada Route Start Time Stop Time Status Last Admin Dose Admin Acetaminophen 1,000 mg ONCE ONCE PO 3/1/19 20:15 06/22/18 20:17 DC 06/22/18 20:23 1,000 MG Vital Signs/I&O 06/22/18 20:00 Temp 97.8 Pulse 102 Resp 18 B/P (MAP) 150/106 (121) Pulse Ox 98 Progress Progress Note #1: Time: 20:37 Progress Note The patient describes some symptoms somewhat she's recently had a cold with runny nose and ears being full. She has symptoms of a trigeminal neuralgia. She' s not really tender over the adventist and her headache is sharp onset and then fleeting which is less like a giant cell arteritis. We are getting an EKG and troponin for her to days of right facial pain just because her family is concerned she is having a heart attack. We'll start with some Tylenol. She's not had any shingles but she does get a lot of stomatitis she says which could be related to the same virus causing her cold-like symptoms and possibly her trigeminal neuralgia. Finally we'll recommend an MRI outpatient. She'll he has an appointment with Dr. English her primary care physician on Monday, 2 days from now. There is no [facility]. Progress Note #2: Time: 21:13 Progress Note Patient's troponin and EKG are unremarkable. Them the pain for over a day so we can put a heart attack to bed. Her symptoms are consistent with trigeminal neuralgia and meet diagnostic criteria. Distally be bernal to get a MRI of her brain to rule out any lesion of the sinus cavernosum. Her ESR and CRP are unremarkable. Rest of her labs are unremarkable. The Tylenol helped her tremendously sobered and recommend she use the Tylenol and ibuprofen and we've given her some strict return precautions for any new or worsening or changing neurologic findings. She has a scheduled appointment on Monday, 2 days from now for PCP and she can get her MRI set up through Dr. English. We have also discussed that if the Tylenol and Motrin are not working that Dr. English could help her with some more intense pain medicines. Departure Impression Primary Impression: Trigeminal neuralgia of right side of face Disposition: HOME, SELF-CARE Condition: Stable (ERASED) Departure-Patient Inst. Decision time for Depature: 21:15 Referrals: ROSINA ENGLISH MD (PCP/Family) Primary Care Physician Patient Instructions: Trigeminal Neuralgia Add. Discharge Instructions: If you have pain in your side your face you can use Tylenol 1000 mg every 8 hours. You may also use ibuprofen 800 mg every 8 hours. Follow-up with Dr. English on Monday at your scheduled appointment and discuss getting an MRI of the brain to rule out any other alternative source of your symptoms. If you have new symptoms or the symptoms spread beyond the distribution of your face then you should return to the nearest ER for further evaluation. All discharge instructions reviewed with patient and/or family. Voiced understanding. Copy Copies To 1: ROSINA ENGLISH MD, TITUS J Jun 22, 2018 20:25
[2018-06-22 20:26] LABS: BASOPHILS % (AUTO) 0 % (0-10); EOSINOPHILS # (AUTO) 0.4 10^3/uL (0.0-0.3); EOSINOPHILS % (AUTO) 4 % (0-10); HEMATOCRIT 47 % (35-52); HEMOGLOBIN 15.2 G/DL (11.5-16.0); LYMPHOCYTES # (AUTO) 1.8 X 10^3 (1.0-4.0); LYMPHOCYTES % (AUTO) 19 % (12-44); MEAN CORPUSCULAR HEMOGLOBIN 29 PG (25-34); MEAN CORPUSCULAR HGB CONC 33 G/DL (32-36); MEAN CORPUSCULAR VOLUME 90 FL (80-99); MEAN PLATELET VOLUME 9.3 FL (7.4-10.4); MONOCYTES # (AUTO) 0.8 X 10^3 (0.0-1.0); MONOCYTES % (AUTO) 8 % (0-12); NEUTROPHILS # (AUTO) 6.5 X 10^3 (1.8-7.8); NEUTROPHILS % (AUTO) 68 % (42-75); PLATELET COUNT 385 10^3/uL (130-400); RED CELL DISTRIBUTION WIDTH 14.3 % (10.0-14.5); WHITE BLOOD COUNT 9.6 10^3/uL (4.3-11.0)
[2018-06-22 20:44] LABS: ALANINE AMINOTRANSFERASE 27 U/L (0-55); ALBUMIN 3.5 GM/DL (3.2-4.5); ALKALINE PHOSPHATASE 96 U/L (40-136); BILIRUBIN,TOTAL 0.2 MG/DL (0.1-1.0); BUN/CREATININE RATIO 29; CALCIUM 9.6 MG/DL (8.5-10.1); CARBON DIOXIDE 27 MMOL/L (21-32); CHLORIDE 103 MMOL/L (98-107); CREATININE SERUM 0.77 MG/DL (0.60-1.30); ERYTHROCYTE SEDIMENTATION RATE 5 MM/HR (0-30); GFR ESTIMATED > 60; GLUCOSE 121 MG/DL (70-105); SODIUM 140 MMOL/L (135-145); TOTAL PROTEIN 6.1 GM/DL (6.4-8.2)
[2018-06-22 21:25] VITALS: BP 150/106
== END 2018-06-22 21:30 | disposition home or self-care (01) ==
LOC: EDUNIT# 19:55 → ER 19:58
DX: G50.0 Trigeminal neuralgia (principal); E78.00 Pure hypercholesterolemia, unspecified; I10 Essential (primary) hypertension; E03.9 Hypothyroidism, unspecified; M32.9 Systemic lupus erythematosus, unspecified; Z82.49 Family history of ischemic heart disease and other diseases of the circulatory system; Z88.2 Allergy status to sulfonamides; Z79.52 Long term (current) use of systemic steroids; Z87.891 Personal history of nicotine dependence; Z98.890 Other specified postprocedural states; Z90.710 Acquired absence of both cervix and uterus; Z90.89 Acquired absence of other organs; Z96.641 Presence of right artificial hip joint
CPT/HCPCS: 36415; 80053; 84484; 85025; 85652; 86141; 93005

== ENCOUNTER 2018-10-14 11:17 | Emergency (ER) | payer MEDICARE, OTHER | END 2018-10-14 11:51 | disposition home or self-care (01) | LOC: ER 11:17 ==

== ENCOUNTER → 2019-06-10 | Outpatient (CLI) | payer MEDICARE, OTHER ==
[~2019-06-10] MED LIST changes: +ACYC400T PO; -DICL100T PO; +NF-DICLOTA PO; +NYST1000 PO
== END ==
LOC: CARD 09:28
PROVIDERS: ATTEND Internal Medicine Cardiovascular Disease
DX: I10 Essential (primary) hypertension (principal); E78.2 Mixed hyperlipidemia; I73.00 Raynaud's syndrome without gangrene; I07.1 Rheumatic tricuspid insufficiency
CPT/HCPCS: 93306

== ENCOUNTER 2019-08-30 06:33 | Outpatient (RCR) | payer MEDICARE, OTHER ==
[~2019-08-30] VITALS: Ht 162.6 cm; Wt 90.9 kg
[~2019-08-30 06:33] MED LIST changes: +CALC-694 PO; +DICL75TA2 PO; +FEXO180T84 PO; -LIDO15SO2 PO; +LIDO20SO23 PO; +MV-M1TAB57 PO
== END 2019-08-30 15:46 | disposition home or self-care (01) ==
LOC: PREOP 06:33
PROVIDERS: ATTEND Urology
DX: Z01.818 Encounter for other preprocedural examination (principal); N39.46 Mixed incontinence; N32.81 Overactive bladder; Z11.59 Encounter for screening for other viral diseases
CPT/HCPCS: 87635

== ENCOUNTER 2019-11-24 16:43 | Emergency (ER) | payer MEDICARE, OTHER ==
[~2019-11-24] VITALS: Ht 162.5 cm; Wt 90.0 kg
[~2019-11-24 16:43] MED LIST changes: +CIPR-225 PO
[2019-11-24 17:00] VITALS: BP 118/83
[2019-11-24] MEDS ORDERED: DOXY100T2 PO (17:10)
--- NOTE | 2019-11-24 17:11 | ED Lower Extremity ---
General Chief Complaint: Lower Extremity Stated Complaint: L FOOT TOE PAIN Source: patient Exam Limitations: no limitations History of Present Illness Date Seen by Provider: Nov 24, 2019 Time Seen by Provider: 17:07 Initial Comments To ER with left great toe pain. She stubbed her toe and partially peeled back the toenail about a week ago. She then went to urgent care and had the toenail removed the rest of the way. She now presents because she is concerned that it's infected because of redness. Onset: just prior to arrival Severity: moderate Pain/Injury Location: left 1st toe Method of Injury: fell Modifying Factors: Worse With Movement Allergies and Home Medications Allergies Coded Allergies: Sulfa (Sulfonamide Antibiotics) (Verified Allergy, Unknown, 08/31/15) Home Medications Calcium Carbonate/Vitamin D3 1 Each Tablet, 1 EACH PO DAILY, (Reported) Ciprofloxacin HCl 500 Mg Tablet, 500 MG PO BID Prescribed by: ASHLEY GUTIERREZ on 09/04/19 1249 Diclofenac Sodium 75 Mg Tablet.dr, 75 MG PO DAILY, (Reported) Fexofenadine HCl 180 Mg Tablet, 180 MG PO DAILY, (Reported) Levothyroxine Sodium 200 Mcg Tablet, 200 MCG PO DAILY, (Reported) Metoprolol Succinate 25 Mg Tab.er.24h, 25 MG PO HS, (Reported) Mv-Mn/Folic Acid/Calcium/Vit K 1 Each Tablet, 1 EACH PO DAILY, (Reported) [place] 3 Polyunsat Fatty Acids 1,000 Mg Cap, 1,000 MG PO DAILY, (Reported) Vitamin B Complex 1 Each Tablet, 1 TAB PO DAILY, (Reported) Patient Home Medication List Home Medication List Reviewed: Yes Review of Systems Constitutional: see HPI EENTM: see HPI Respiratory: no symptoms reported Cardiovascular: no symptoms reported Genitourinary: no symptoms reported Musculoskeletal: see HPI Skin: see HPI Psychiatric/Neurological: No Symptoms Reported Past Eeedfxl-Hbhkhd-Dvqfzo Hx Patient Social History Alcohol Use: Denies Use Recreational Drug Use: No Smoking Status: Former Smoker Former Smoker, Quit: August 31, 2007 2nd Hand Smoke Exposure: No Recent Foreign Travel: No Contact w/Someone Who Travel: No Recent Hopitalizations: No Physical Abuse: No Sexual Abuse: No Mistreated: No Fear: No Immunizations Up To Date PED Vaccines UTD: No Date of Pneumonia Vaccine: Jan 09, 2011 Date of Influenza Vaccine: Jan 09, 2019 Seasonal Allergies Seasonal Allergies: Yes Past Medical History Surgeries: Yes (CATARACTS, RIGHT TOTAL HIP, TEMPORAL ARTERY BIOPSY) Adenoidectomy, Appendectomy, Eye Surgery, Gallbladder, Hysterectomy, Joint Replacement, Orthopedic, Thyroidectomy, Tonsillectomy Respiratory: No Currently Using CPAP: No Currently Using BIPAP: No Cardiac: Yes High Cholesterol, Hypertension Neurological: Yes (possible previous stroke) Reproductive Disorders: No (HYSTERECTOMY) MANAGER FINANCE History: Hysterectomy HIV/AIDS: No Genitourinary: Yes (OAB) Gastrointestinal: No Musculoskeletal: Yes Arthritis Endocrine: Yes (thyroidectomy) Hypothyroidsim, Lupus HEENT: Yes Cataract Loss of Vision: Denies Hearing Impairment: Hearing Aide Right, Deaf Cancer: No Psychosocial: No Integumentary: No Blood Disorders: No Adverse Reaction/Blood Tranf: No (N/A) Family Medical History Alcoholism 19 MOTHER Diabetes mellitus 19 MOTHER Myocardial infarction 19 MOTHER Cancer Physical Exam Vital Signs Capillary Refill : Height, Weight, BMI Height: 5'4.00" Weight: 187lbs. 0oz. 84.003775ix; 34.38 BMI Method:Stated General Appearance: WD/WN, no apparent distress Neck: non-tender, full range of motion Respiratory: no respiratory distress, no accessory muscle use Hips: bilateral hip non-tender, bilateral hip normal inspection, bilateral hip normal range of motion Legs: bilateral leg non-tender, bilateral leg normal inspection, bilateral leg normal range of motion Knees: bilateral knee non-tender, bilateral knee normal inspection, bilateral knee normal range of motion Ankles: bilateral ankle non-tender, bilateral ankle normal inspection, bilateral ankle normal range of motion Feet: left foot other (bit of erythema to the left great toe, some serosanguineous drainage from the nail bed laterally) Neurologic/Psychiatric: alert, normal mood/affect, oriented x 3 Skin: normal color, warm/dry There is no cellulitis of the foot, the erythema and cellulitis confined to the toe itself. Toenail is absent Progress/Results/Core Measures Results/Orders My Orders Orders - CHARLEY MCDONOUGH APRN Wound Culture (11/24/19 17:05) Departure Communication (Admissions) She does have some purplish discoloration of each of her toes which she states is from her lupus and they are always like this. They do have capillary refill of about 3 seconds Impression Primary Impression: Soft tissue infection of foot Disposition: HOME, SELF-CARE Condition: Stable Departure-Patient Inst. Decision time for Depature: 17:09 Referrals: VONDA ACEVEDO MD (PCP/Family) Primary Care Physician Patient Instructions: Wound Infection Add. Discharge Instructions: Start the oral antibiotics tomorrow. Return to ER for any concerns. Follow-up with your doctor next week. All discharge instructions reviewed with patient and/or family. Voiced understanding. Scripts Doxycycline Hyclate (Doxycycline Hyclate) 100 Mg Tablet 100 MG PO BID, #20 TAB 0 Refills Prov: CHARLEY MCDONOUGH APRN 11/24/19 CHARLEY MCDONOUGH APRN Nov 24, 2019 17:11
[2019-11-24] MEDS ORDERED: cefTRIAXone 1,000 MG/2.86 ml vial (IM ONLY) IM SCH (17:15)
[2019-11-24] MEDS ORDERED: LIDOCAINE 1% INJ 20 ML 20 ML VIAL INJ ONE (17:15)
== END 2019-11-24 17:45 | disposition home or self-care (01) ==
LOC: EDUNIT# 16:43 → ER 16:45
DX: L08.89 Other specified local infections of the skin and subcutaneous tissue (principal); E78.00 Pure hypercholesterolemia, unspecified; I10 Essential (primary) hypertension; M19.90 Unspecified osteoarthritis, unspecified site; E89.0 Postprocedural hypothyroidism; M32.9 Systemic lupus erythematosus, unspecified; N32.81 Overactive bladder; Z87.891 Personal history of nicotine dependence; Z88.2 Allergy status to sulfonamides; Z79.899 Other long term (current) drug therapy; Z79.890 Hormone replacement therapy
CPT/HCPCS: 87070; 87205; 99284

== ENCOUNTER → 2020-07-16 | Outpatient (CLI) | payer MEDICARE, OTHER ==
[~2020-07-16] MED LIST changes: +DOXY100T2 PO; -FOLI1TAB24 PO; +FOLI1TAB33 PO
--- NOTE | 2020-07-17 09:20 | Diagnostic Imaging Report ---
EXAM: Digital mammogram bilateral screening COMPARISON: There are no prior studies available for comparison. The fibroglandular tissue in both breasts is heterogeneously dense. This does limit the sensitivity of this exam. In the 2 o'clock position of the left breast at middle depth, there is a 15 mm asymmetry. This finding is of uncertain etiology. This could be related to normal breast parenchyma or perhaps a scar formation. It would be less likely that this is neoplastic in nature. Even so, I would recommend that compression views be obtained of this area in the CC and MLO projections for further study. A true lateral view should also performed as well as ultrasound. The right breast is unremarkable. IMPRESSION: Additional mammographic views and ultrasound of the left breast would be recommended for further study. ACR BI-RADS Category 0: Incomplete. (Needs additional imaging evaluation). Result letter will be mailed to the patient. Note: At least 10% of breast cancer is not imaged by mammography. Dictated by: Dictated on workstation # [id number]
== END ==
LOC: RAD 10:38
PROVIDERS: ATTEND Nurse Practitioner Family
DX: Z12.31 Encounter for screening mammogram for malignant neoplasm of breast (principal)
CPT/HCPCS: 77063; 77067

== ENCOUNTER 2020-07-27 06:54 | Outpatient (CLI) | payer MEDICARE, OTHER ==
[~2020-07-27] VITALS: Ht 162.6 cm; Wt 90.8 kg
== END 2020-07-27 13:52 | disposition home or self-care (01) ==
LOC: PREOP 06:54
PROVIDERS: ATTEND Urology
DX: Z01.812 Encounter for preprocedural laboratory examination (principal); N32.81 Overactive bladder

== ENCOUNTER 2020-07-29 06:26 | Day surgery (SDC) | payer MEDICARE, OTHER ==
[2020-07-29] VITALS (10 sets, daily range): BP systolic 106–144; BP diastolic 63–84
[~2020-07-29] VITALS: Ht 162 cm; Wt 90.8 kg
[2020-07-29] MEDS ORDERED: cefTRIAXone FOR IV USE 1,000 MG in WATER (STERILE) FOR INJECTION 10 ML IV ONE (06:45)
[2020-07-29] MEDS ORDERED: LACTATED RINGERS 1,000 ML IV PRN (06:45)
[2020-07-29] MEDS ORDERED: proPOfol 200 MG/20 ML (DIPRIVAN) VIAL IV ONE (06:46)
[2020-07-29] MEDS ORDERED: SEVOFLURANE (ULTANE) 15 ML INHAL SOLN ONE ×2 (06:46→08:12)
[2020-07-29] MEDS ORDERED: LIDOCAINE PF 2% 5 ML (XYLOCAINE) VIAL ONE (06:46)
[2020-07-29] MEDS ORDERED: ONDANSETRON 4 MG/2 ML (SDV) Z0FRAN ONE (06:46)
[2020-07-29] MEDS ORDERED: MIDAZOLAM 2 MG/2 ML (VERSED) VIAL ONE (06:47)
[2020-07-29] MEDS ORDERED: fentaNYL INJ 100 MCG/2 ML AMP ONE (06:47)
[2020-07-29] MEDS ORDERED: 0.9% SODIUM CHLORIDE PF INJ 20 ML VIAL ONE (07:08)
[2020-07-29] MEDS ORDERED: ASPI-808 PO (07:09)
--- NOTE | 2020-07-29 07:14 | Progress Note-Pre Operative ---
Pre-Operative Progress Note H&P Reviewed The H&P was reviewed, patient examined and no changes noted. Date Seen by Provider: Jul 29, 2020 Time Seen by Provider: 07:13 Date H&P Reviewed: Jul 29, 2020 Time H&P Reviewed: 07:13 Pre-Operative Diagnosis: OAB, SEVERE URGENCY AND INCONTINENCE REFRACTORY TO MEDICAL TREATMENT MISSY COLE MD Jul 29, 2020 07:13
[2020-07-29] MEDS ORDERED: CATHETER FLUSH 10 ML SYR IV PRN (07:15)
--- NOTE | 2020-07-29 07:17 | Progress Note-Post Operative ---
Post-Operative Progess Note Surgeon (s)/Dried Yeast Supervisor (s) Surgeon MISSY COLE MD Dried Yeast Supervisor: NONE Pre-Operative Diagnosis OAB, SEVERE URGENCY AND INCONTINENCE REFRACTORY TO MEDICAL TREATMENT Post-Operative Diagnosis SAME Procedure & Operative Findings Date of Procedure 07/29/20 Procedure Performed/Findings ENDOSCOPIC BOTOX INJECTIONS Anesthesia Type GENERAL Estimated Blood Loss Estimated blood loss (mL): NEGLIGIBLE Specimens/Packing Specimens Removed NONE Packing: NONE MISSY COLE MD Jul 29, 2020 07:17
--- NOTE | 2020-07-29 07:19 | Discharge Inst-Urology ---
Discharge Inst-Urology Reconcile Patient Problems Problems Reviewed?: Yes Final Diagnosis OAB WITHSEVERE URGENCY AND INCONTINENCE REFRACTORY TO MEDICAL TREATMENT Patient Instructions/Follow Up Plan/Assessment/Instructions Please make appointment to been seen in office in 4 weeks. May resume ASA in 48 hours if no bleeding Showers, no bath for one week Keep bowels soft and moving Increase oral fluids for 48 hours and then as needed. Diet and Activity as tolerated. If questions or concerns contact your physician Or seek help at emergency department. MISSY COLE MD Jul 29, 2020 07:19
[2020-07-29] MEDS ORDERED: ROCURONIUM 10 MG/ML 5 ML SYRINGE IV ONE (07:56)
[2020-07-29] MEDS ORDERED: ONABOTULINUMTOXINA 100 UNIT (BOTOX) VIAL INJ SCH (08:00)
--- NOTE | 2020-07-29 15:35 | OPERATIVE REPORT ---
DATE OF SERVICE: 07/29/2020 PREOPERATIVE DIAGNOSIS: Overactive bladder with severe urgency and incontinence, refractory to medical treatment. POSTOPERATIVE DIAGNOSIS: Overactive bladder with severe urgency and incontinence refractory to medical treatment. OPERATION PERFORMED: Endoscopic Botox injection. SURGEON: Carlos Cole MD ANESTHESIA: General. COMPLICATIONS: None. DESCRIPTION OF PROCEDURE: Under satisfactory general anesthesia, the patient in lithotomy position, genitalia were prepped and draped in the usual sterile fashion. Cystoscope was introduced under vision and the bladder was filled fci. Injection of the Botox started upward and lateral to the left ureteral orifice and 0.5 mL of the reconstituted Botox solution was injected in 20 different spots, working our way up toward the dome and the last injection flushed with 1 mL syringe fluid. There was very minimal oozing. Bladder was evacuated. The cystoscope was removed and the patient tolerated the procedure and anesthesia well and was sent to recovery room in stable condition. Job ID: [id number] DocumentID: [id number] Dictated Date: 07/29/2020 08:20:32 Window Air Conditioner Installer Date: 07/29/2020 15:34:50 Dictated By: CARLOS COLE MD
--- NOTE | 2020-07-30 04:49 | Anesthesia-General Post-Op ---
General Patient Condition Mental Status/LOC: Same as Preop Cardiovascular: Satisfactory Nausea/Vomiting: Absent Respiratory: Satisfactory Pain: Controlled Complications: Absent Post Op Complications Complications None Follow Up Care/Instructions Patient Instructions None needed. Anesthesia/Patient Condition Patient Condition Patient is doing well, no complaints, stable vital signs, no apparent adverse anesthesia problems. No complications reported per nursing. EMMA TRUONG CRNA Jul 30, 2020 04:49
== END 2020-07-29 10:05 ==
LOC: SDC 06:26
PROVIDERS: ATTEND Urology
DX: N32.81 Overactive bladder (principal); N39.41 Urge incontinence; I10 Essential (primary) hypertension; M19.90 Unspecified osteoarthritis, unspecified site; E03.9 Hypothyroidism, unspecified; E66.9 Obesity, unspecified; Z68.34 Body mass index [BMI] 34.0-34.9, adult; Z79.899 Other long term (current) drug therapy; Z88.2 Allergy status to sulfonamides
CPT/HCPCS: 87081

== ENCOUNTER → 2020-07-30 | Outpatient (CLI) | payer MEDICARE, OTHER ==
[~2020-07-30] MED LIST changes: +ASPI-808 PO
--- NOTE | 2020-07-30 13:18 | Diagnostic Imaging Report ---
INDICATION: Left breast density. Patient presents for additional views. CORRELATION is made with screening study from 07/16/2020. Unilateral left 2-D and 3-D diagnostic mammography was performed with CAD. Spot compression CC and ML views as well as conventional 90 degree lateral views were performed. There is a persistent density in the upper outer left breast approximately 4-6 cm from the nipple. Further evaluation with ultrasound is recommended. IMPRESSION: BI-RADS 0 Persistent density upper outer left breast 4-6 cm from the nipple. Further evaluation with ultrasound is recommended and will be performed today. ACR BI-RADS Category 0: Incomplete. (Needs additional imaging evaluation). Result letter will be mailed to the patient. Note: At least 10% of breast cancer is not imaged by mammography. Dictated by: Dictated on workstation # [id number]
--- NOTE | 2020-07-30 14:07 | Diagnostic Imaging Report ---
INDICATION: Left breast asymmetry. CORRELATION is made with a diagnostic study earlier same the day and screening mammogram from 07/16/2020. Sonographic interrogation upper outer left breast was performed. No discrete solid or cystic mass is identified. No sonographic abnormality is detected. IMPRESSION: BI-RADS Category 1. No sonographic abnormality is seen. Patient may return to routine annual screening mammography. ACR BI-RADS Category 1: Negative. Result letter will be mailed to the patient. Note: At least 10% of breast cancer is not imaged by mammography. Dictated by: Dictated on workstation # [id number]
== END ==
LOC: RAD 13:15
PROVIDERS: ATTEND Nurse Practitioner Family
DX: R92.2 Inconclusive mammogram (principal)
CPT/HCPCS: 76642; 77065; G0279

== ENCOUNTER 2021-02-18 05:40 | Outpatient (CLI) | payer MEDICARE, OTHER ==
[~2021-02-18] VITALS: Ht 162.6 cm; Wt 90.8 kg
[~2021-02-18 05:40] MED LIST changes: -ACYC400T PO; +ACYC400T21 PO
[2021-02-18] MEDS ORDERED: ATOR10TA PO (13:11)
== END 2021-02-18 18:01 | disposition home or self-care (01) ==
LOC: PREOP 05:40
PROVIDERS: ATTEND Urology
DX: Z01.818 Encounter for other preprocedural examination (principal)

== ENCOUNTER 2021-02-24 07:28 | Day surgery (SDC) | payer MEDICARE, OTHER ==
[2021-02-24] VITALS (10 sets, daily range): BP systolic 109–150; BP diastolic 71–92
[~2021-02-24] VITALS: Ht 162.6 cm; Wt 90.8 kg
[~2021-02-24 07:28] MED LIST changes: +ATOR10TA PO
--- NOTE | 2021-02-24 07:32 | Progress Note-Pre Operative ---
Pre-Operative Progress Note H&P Reviewed The H&P was reviewed, patient examined and no changes noted. Date Seen by Provider: Feb 24, 2021 Time Seen by Provider: 07:32 Date H&P Reviewed: Feb 24, 2021 Time H&P Reviewed: 07:32 Pre-Operative Diagnosis: OAB, SEVERE URGENCY, AND INCONTINENCE MISSY COLE MD Feb 24, 2021 07:32
--- NOTE | 2021-02-24 07:33 | Progress Note-Post Operative ---
Post-Operative Progess Note Surgeon (s)/Tractor Crane Operator (s) Surgeon MISSY COLE MD Tractor Crane Operator: NONE Pre-Operative Diagnosis OAB, SEVERE URGENCY, AND INCONTINENCE Post-Operative Diagnosis SAME Procedure & Operative Findings Date of Procedure 02/24/21 Procedure Performed/Findings ENDOSCOPIC BOTOX INJECTIONS Anesthesia Type GENERAL Estimated Blood Loss Estimated blood loss (mL): NEGLIGIBLE Specimens/Packing Specimens Removed NONE Packing: NONE MISSY COLE MD Feb 24, 2021 07:33
--- NOTE | 2021-02-24 07:35 | Discharge Inst-Urology ---
Discharge Inst-Urology Reconcile Patient Problems Problems Reviewed?: Yes Final Diagnosis OAB, SEVERE URGENCY AND INCONTINENCE Patient Instructions/Follow Up Plan/Assessment/Instructions Please make appointment to been seen in office in 4 weeks. Keep bowels soft and moving Increase oral fluids for 48 hours and then as needed. Diet and Activity as tolerated. If questions or concerns contact your physician Or seek help at emergency department. MISSY COLE MD Feb 24, 2021 07:35
[2021-02-24] MEDS ORDERED: cefTRIAXone 1,000 MG in WATER (STERILE) FOR INJECTION 10 ML IV ONE (07:45)
[2021-02-24] MEDS ORDERED: LACTATED RINGERS 1,000 ML IV PRN (07:45)
[2021-02-24] MEDS ORDERED: ONABOTULINUMTOXINA 100 UNIT (BOTOX) VIAL INJ ONE (08:00)
[2021-02-24] MEDS ORDERED: WATER (STERILE) FOR INJECTION 10 ML ONE (08:05)
[2021-02-24] MEDS ORDERED: cefTRIAXone 1,000 MG VIAL ONE (08:05)
[2021-02-24] MEDS ORDERED: HYDROmorphone 2 MG/ML VIAL (DILAUDID) IV ONE (09:45)
[2021-02-24] MEDS ORDERED: ONDANSETRON 4 MG/2 ML (SDV) Z0FRAN IVP PRN (09:45)
[2021-02-24] MEDS ORDERED: NITR-65 PO (10:39)
[2021-02-24] MEDS ORDERED: PHEN-640 PO (10:39)
--- NOTE | 2021-02-24 15:08 | Anesthesia-General Post-Op ---
General Patient Condition Mental Status/LOC: Same as Preop Cardiovascular: Satisfactory Nausea/Vomiting: Absent Respiratory: Satisfactory Pain: Controlled Complications: Absent Post Op Complications Complications None Follow Up Care/Instructions Patient Instructions None needed. Anesthesia/Patient Condition Patient Condition Patient is doing well, no complaints, stable vital signs, no apparent adverse anesthesia problems. No complications reported per nursing. D/C home per [facility] Criteria: Yes GERHARD SON CRNA Feb 24, 2021 15:08
--- NOTE | 2021-02-24 17:09 | OPERATIVE REPORT ---
DATE OF SERVICE: 02/24/2021 PREOPERATIVE DIAGNOSIS: Overactive bladder with severe urgency and incontinence. POSTOPERATIVE DIAGNOSIS: Overactive bladder with severe urgency and incontinence. OPERATION PERFORMED: Endoscopic Botox injections. SURGEON: Carlos Cole MD ANESTHESIA: General. COMPLICATIONS: None. DESCRIPTION OF PROCEDURE: Under satisfactory general anesthesia, the patient in lithotomy position, genitalia were prepped and draped in the usual sterile fashion. Cystoscopy was performed and then the bladder was left half full. Using the Cook needle, I adjusted at 3. I injected 0.5 mL of Botox in 20 sites as described; a total of 100 units was injected. I removed the cystoscope and performed Valsalva maneuver that was negative. Reinserted the scope into the bladder. The patient tolerated the procedure and anesthesia well and was sent to recovery room in stable condition. Job ID: [id number] DocumentID: [id number] Dictated Date: 02/24/2021 09:46:49 Crabbing Machine Operator Date: 02/24/2021 17:08:50 Dictated By: CARLOS COLE MD
== END 2021-02-24 11:00 | disposition home or self-care (01) ==
LOC: SDC 07:28
PROVIDERS: ATTEND Urology
DX: N32.81 Overactive bladder (principal); N39.41 Urge incontinence; I10 Essential (primary) hypertension; E66.9 Obesity, unspecified; Z79.1 Long term (current) use of non-steroidal anti-inflammatories (NSAID); Z79.899 Other long term (current) drug therapy; Z68.34 Body mass index [BMI] 34.0-34.9, adult
CPT/HCPCS: 87081

== ENCOUNTER → 2021-04-08 | Outpatient (CLI) | payer MEDICARE, OTHER ==
[~2021-04-08] MED LIST changes: +NITR-65 PO; +PHEN-640 PO
== END ==
LOC: LABNPT 08:26
PROVIDERS: ATTEND Family Medicine
DX: Z20.822 Contact with and (suspected) exposure to COVID-19 (principal)
CPT/HCPCS: 87636